=== PATIENT | male | born 1965 | race Caucasian/White ===

== ENCOUNTER 2017-08-27 10:50 | Emergency (ER) | payer OTHER, BC ==
[2017-08-27 12:19] VITALS: BP 142/93
--- NOTE | 2017-08-27 12:46 | UC ---
Respiratory Complaint HPI - HPI Summary HPI Summary: 2 weeks of worsening left lateral rib pain, positional and increase pain with movement, no fevers, - History of Current Complaint Chief Complaint: UCRespiratory Stated Complaint: LEFT SIDE RIB PAIN Time Seen by Provider: 08/27/17 12:39 Hx Obtained From: Patient Onset/Duration: Gradual Onset, Lasting Weeks - 2, Still Present Timing: Constant Severity Initially: Moderate Severity Currently: Moderate Character: Cough: Nonproductive Aggravating Factors: Recumbent Position Alleviating Factors: Nothing Associated Signs And Symptoms: Positive: Pleuritic Chest Pain Related History: Similar Episode/Dx as: - right side last year dx as pleurtic chest pain - Allergies/Home Medications Allergies/Adverse Reactions: Allergies Allergy/AdvReac Type Severity Reaction Status Date / Time Penicillins Allergy Unknown Unknown Verified 08/27/17 12:12 Reaction Details PMH/Surg Hx/FS Hx/Imm Hx Previously Healthy: No Cardiovascular History: Hypertension - Surgical History Surgical History: Yes Surgery Procedure, Year, and Place: Anal Fissure, 2006 2007, [facility] - Family History Known Family History: Positive: Hypertension - Social History Occupation: Employed Full-time Lives: With Family Alcohol Use: Other Alcohol Amount: 5-6 beer Substance Use Type: None Smoking Status (MU): Heavy Every Day Tobacco Smoker Type: Cigarettes Amount Used/How Often: 1 ppd Length of Time of Smoking/Using Tobacco: 30 years Have You Smoked in the Last Year: Yes When Did the Patient Quit Smoking/Using Tobacco: 12/2016 - Immunization History Most Recent Tetanus Shot: unknown Review of Systems Constitutional: Negative Skin: Negative Eyes: Negative ENT: Negative Respiratory: Cough Cardiovascular: Negative Gastrointestinal: Negative Genitourinary: Negative Motor: Negative Neurovascular: Negative Musculoskeletal: Negative Neurological: Negative Psychological: Negative Is Patient Immunocompromised?: No All Other Systems Reviewed And Are Negative: Yes Physical Exam Triage Information Reviewed: Yes Appearance: Well-Appearing, No Pain Distress, Well-Nourished Vital Signs: Initial Vital Signs Temp 98.4 F 08/27/17 12:13 Pulse 80 08/27/17 12:13 Resp 18 08/27/17 12:13 BP 142/93 08/27/17 12:13 Pulse Ox 98 08/27/17 12:13 Vital Signs Reviewed: Yes Eye Exam: Normal Eyes: Positive: Conjunctiva Clear ENT Exam: Normal ENT: Positive: Normal ENT inspection, Hearing grossly normal, Pharynx normal, TMs normal. Negative: Nasal congestion, Nasal drainage, Trismus, Muffled voice , Hoarse voice, Sinus tenderness Dental Exam: Normal Neck exam: Normal Neck: Positive: Supple, Nontender, No Lymphadenopathy Respiratory Exam: Normal Respiratory: Positive: Chest non-tender, Lungs clear, Normal breath sounds, No respiratory distress, No accessory muscle use Cardiovascular Exam: Normal Cardiovascular: Positive: RRR, No Murmur, Pulses Normal, Brisk Capillary Refill Musculoskeletal Exam: Normal Musculoskeletal: Positive: Strength Intact, ROM Intact, No Edema Neurological Exam: Normal Neurological: Positive: Alert, Muscle Tone Normal Psychological Exam: Normal Skin Exam: Normal UC Diagnostic Evaluation - Laboratory O2 Sat by Pulse Oximetry: 98 - Radiology Xray Interpretation: Positive (See Comments) - 2.6 cm nodule right lung Radiology Interpretation Completed By: Radiologist Respiratory Course/Dx - Course Course Of Treatment: explained to patient finding on x-ray, patient understands the importance of follow up as planned with Dr. Mehta 08/29/17 at 4pm-- - Differential Dx/Diagnosis Provider Diagnoses: Left chest wall pain, right pulmonary nodule Discharge - Discharge Plan Condition: Stable Disposition: HOME Patient Education Materials: Pulmonary Nodules (ED), Chest Wall Pain (ED) Referrals: Supa Vigil MD [Primary Care Provider] - 08/29/17 4:00 pm
--- NOTE | 2017-08-27 13:21 | RAD ---
INDICATION: Cough and left rib pain COMPARISON: Most recent comparison chest x-rays dated August 05, 2016 TECHNIQUE: PA and lateral views of the chest were obtained. FINDINGS: The heart and mediastinum are normal in size and contour. Overlying the lower right lung is a 2.6 cm density that was not seen on the previous chest x-ray. Otherwise the lungs are grossly clear. There is no evidence of large pleural effusion. Visualized bones are normal for the patient's age. There is no radiographic evidence of free air beneath the diaphragm IMPRESSION: INTERVAL APPEARANCE OF A 2.6 CM DENSITY OVERLYING THE LOWER RIGHT LUNG NOT LOCALIZED ON THE LATERAL VIEW CHEST X-RAY. IN THE SETTING OF A SMOKING HISTORY FURTHER CHARACTERIZATION WITH CONTRAST-ENHANCED CT OF THE CHEST IS ADVISED.
== END 2017-08-27 13:40 | disposition home or self-care (01) ==
LOC: UCCORT 10:50
DX: R07.89 Other chest pain (principal); R91.1 Solitary pulmonary nodule; I10 Essential (primary) hypertension; Z88.0 Allergy status to penicillin; Z87.891 Personal history of nicotine dependence
CPT/HCPCS: 71020; 99211; G0463

== ENCOUNTER 2018-03-22 21:01 | Emergency (ER) | payer OTHER, BC ==
[2018-03-22 22:12] LABS: ABS Basophils 0 10^3/ul (0-0.2); ABS Eosinophils 0.1 10^3/ul (0-0.6); ABS Lymphocytes 1.8 10^3/ul (1.0-4.8); ABS Monocytes 0.9 10^3/ul (0-0.8); ABS Nucleated RBC 0 10^3/ul; Eosinophil % 1.5 % (0-6); Hematocrit 43 % (42-52); Hemoglobin 14.8 g/dl (14.0-18.0); Lymphocyte % 30.8 % (25-47); Mean Corpuscular HGB Conc 35 g/dl (31-36); Mean Corpuscular Hemoglobin 31 pg (27-31); Mean Corpuscular Volume 90 fL (80-94); Mean Platelet Volume 6.8 um3 (7.4-10.4); Nucleated Red Blood Cells % 0.1; Platelet Count 290 10^3/ul (150-450); Red Blood Count 4.77 10^6/ul (4.00-5.40); Red Cell Distribution Width 13 % (10.5-15); White Blood Count 5.9 10^3/ul (3.5-10.8)
[2018-03-22 22:35] LABS: EGFR Non-African American 110.6 (>60)
[2018-03-22 23:55] VITALS: BP 132/74
--- NOTE | 2018-03-23 05:16 | ED ---
Emmanuel Vinson Jade, scribed for Jose Angel Muniz MD on 03/22/18 at 2339 . Syncope/Near Syncope - HPI Summary HPI Summary: Pt is a 52 y/o male who presents to the ED s/p syncope at 19:30. He states he was sitting down smoking a cigarette when he had a sudden heavy cough. Pt stood up, and remembers his knees buckling. He does not think he had a full LOC, but does not remember hitting his forehead and knee. Pt states he stood himself back up. He denies any headache. Pt is a heavy smoker and drinker, and uses marijuana. His tetanus is UTD. - History Of Current Complaint Chief Complaint: EDSyncope Time Seen by Provider: 03/22/18 23:34 Hx Obtained From: Patient Onset/Duration: Sudden Onset - 19:30, Resolved Context: Unwitnessed Activity At Onset: At Rest Aggravating Factor(s): Exertion - Coughing Alleviating Factor(s): Spontaneous Resolution - Allergies/Home Medications Allergies/Adverse Reactions: Allergies Allergy/AdvReac Type Severity Reaction Status Date / Time Penicillins Allergy Unknown Verified 03/22/18 21:07 Reaction Details PMH/Surg Hx/FS Hx/Imm Hx Endocrine/Hematology History: Denies: Hx Diabetes, Hx Thyroid Disease Cardiovascular History: Reports: Hx Hypertension, Hx Valvular Heart Disease - mitral valve prolapse. Comment Only: Hx Congestive Heart Failure - MVP Respiratory History: Reports: Hx Pneumonia Denies: Hx Asthma, Hx Chronic Obstructive Pulmonary Disease (COPD) GI History: Denies: Hx Ulcer History: Denies: Hx Dialysis, Hx Kidney Stones, Hx Renal Disease - Surgical History Surgery Procedure, Year, and Place: Anal Fissure, 2006 2007, [facility] Infectious Disease History: No Infectious Disease History: Denies: Hx Clostridium Difficile, Hx Hepatitis, Hx Human Immunodeficiency Virus (HIV), Hx of Known/Suspected MRSA, Hx Shingles, Hx Tuberculosis, Traveled Outside the [place] in Last 30 Days - Family History Known Family History: Positive: Hypertension - Social History Alcohol Use: Daily Substance Use Type: Reports: Marijuana Smoking Status (MU): Heavy Every Day Tobacco Smoker Type: Cigarettes Amount Used/How Often: 1 ppd Length of Time of Smoking/Using Tobacco: 30 years Have You Smoked in the Last Year: Yes Review of Systems Negative: Fever Positive: Syncope. Negative: Headache All Other Systems Reviewed And Are Negative: Yes Physical Exam - Summary Physical Exam Summary: Appearance: Well appearing, no pain distress Skin: warm, dry, reflects adequate perfusion. Abrasion on left forehead and right knee, not actively bleeding. Head/face: normal Eyes: EOMI, JARROD. A little bloodshot. ENT: normal. Normal TMs. Neck: supple, non-tender Respiratory: CTA, breath sounds present Cardiovascular: RRR, pulses symmetrical Abdomen: non-tender, soft Bowel Sounds: present Musculoskeletal: normal, strength/ROM intact Neuro: normal, sensory motor intact, A&Ox3 Triage Information Reviewed: Yes Vital Signs On Initial Exam: Initial Vitals Temp Pulse Resp BP Pulse Ox 97.4 F 72 20 138/85 98 03/22/18 21:03 03/22/18 21:03 03/22/18 21:03 03/22/18 21:03 03/22/18 21:03 Vital Signs Reviewed: Yes Diagnostics - Vital Signs Vital Signs Temp Pulse Resp BP Pulse Ox 03/22/18 21:03 97.4 F 72 20 138/85 98 - Laboratory Lab Results: Lab Results 03/22/18 03/22/18 03/22/18 Range/Units 22:02 22:02 22:02 WBC 5.9 (3.5-10.8) 10^3/ul RBC 4.77 (4.00-5.40) 10^6/ul Hgb 14.8 (14.0-18.0) g/dl Hct 43 (42-52) % MCV 90 (80-94) fL MCH 31 (27-31) pg MCHC 35 (31-36) g/dl RDW 13 (10.5-15) % Plt Count 290 (150-450) 10^3/ul MPV 6.8 L (7.4-10.4) um3 Neut % (Auto) 51.7 (38-83) % Lymph % (Auto) 30.8 (25-47) % Evangeline % (Auto) 15.2 H (0-7) % Eos % (Auto) 1.5 (0-6) % Baso % (Auto) 0.8 (0-2) % Absolute Neuts (auto) 3.0 (1.5-7.7) 10^3/ul Absolute Lymphs (auto) 1.8 (1.0-4.8) 10^3/ul Absolute Monos (auto) 0.9 H (0-0.8) 10^3/ul Absolute Eos (auto) 0.1 (0-0.6) 10^3/ul Absolute Basos (auto) 0 (0-0.2) 10^3/ul Absolute Nucleated RBC 0 10^3/ul Nucleated RBC % 0.1 Sodium 129 L (135-145) mmol/L Potassium 3.5 (3.5-5.0) mmol/L Chloride 95 L (101-111) mmol/L Carbon Dioxide 26 (22-32) mmol/L Anion Gap 8 (2-11) mmol/L BUN 9 (6-24) mg/dL Creatinine 0.74 (0.67-1.17) mg/dL Est GFR ( Amer) 133.9 (>60) Est GFR (Non-Af Amer) 110.6 (>60) BUN/Creatinine Ratio 12.2 (8-20) Glucose 82 (70-100) mg/dL Lactic Acid 0.7 (0.5-2.0) mmol/L Calcium 9.0 (8.6-10.3) mg/dL Magnesium 2.2 (1.9-2.7) mg/dL Total Bilirubin 0.30 (0.2-1.0) mg/dL AST 17 (13-39) U/L ALT 14 (7-52) U/L Alkaline Phosphatase 48 (34-104) U/L Troponin I 0.00 (<0.04) ng/mL Total Protein 7.2 (6.4-8.9) g/dL Albumin 4.2 (3.2-5.2) g/dL Globulin 3.0 (2-4) g/dL Albumin/Globulin Ratio 1.4 (1-3) TSH 1.76 (0.34-5.60) mcIU/mL Result Diagrams: 03/22/18 22:02 03/22/18 22:02 Lab Statement: Any lab studies that have been ordered have been reviewed, and results considered in the medical decision making process. - EKG 21:32 Cardiac Rate: NL - 66 bpm EKG Rhythm: Sinus Rhythm ST Segment: Normal EKG Interpretation: Normal axis, RBBB Course/Dx Course Of Treatment: Heavy smoker, drinker with coughing fit that caused lightheadedness and subsequent syncope. Abrasion to his knee and forehead. No headaches, etc. Neurologically normal at present. Tetanus is up-to-date. Likely etiology after normal EKG his cough syncope. Discussed smoking as likely precipitant. He will try to cut back. He will follow up with primary care physician. - Diagnoses Differential Diagnosis/HQI/PQRI: Positive: Hypoglycemia, Hypovolemia, Metabolic Reaction, Vasovagal Episode Provider Diagnoses: Cough syncope, Abrasions of multiple sites, Tobacco abuse Discharge - Sign-Out/Discharge Documenting (check all that apply): Discharge/Admit/Transfer - Discharge - Discharge Plan Condition: Improved Disposition: HOME Patient Education Materials: How to Stop Smoking (ED), Syncope (ED) Referrals: Supa Vigil MD [Primary Care Provider] - Additional Instructions: Dress your abrasions with bacitracin ointment twice a day. Cut back or quit smoking. This contributes directly to your cough and subsequent passing out. Call to follow-up with family doctor morning. Return if worse, new symptoms or other concerns. - Billing Disposition and Condition Condition: IMPROVED Disposition: Home The documentation as recorded by the Emmanuel peoples Jade accurately reflects the service I personally performed and the decisions made by , Jose Angel Muniz MD.
== END 2018-03-22 23:55 | disposition home or self-care (01) ==
LOC: ED 21:01
DX: R55 Syncope and collapse (principal); S80.219A Abrasion, unspecified knee, initial encounter; F19.10 Other psychoactive substance abuse, uncomplicated; F17.210 Nicotine dependence, cigarettes, uncomplicated; W19.XXXA Unspecified fall, initial encounter; Y92.9 Unspecified place or not applicable; R05 Cough
CPT/HCPCS: 36415; 80053; 83605; 83735; 84443; 84484; 85025; 93005; 99282

== ENCOUNTER 2018-11-13 09:00 | Inpatient (IN) | payer OTHER, BC ==
[~2018-11-13 09:00] MED LIST: Sodium Bicarbonate 8.4%* 50 ML SYRINGE ONE
[2018-11-13] MEDS ORDERED: EPINEPHrine SYR 0.1MG/ML* SYRINGE ONE (09:01)
--- NOTE | 2018-11-13 09:04 | ED ---
Cardiac Resuscitation - HPI Summary HPI Summary: Pt is a 53 y/o male brought in by EMS who presents to the ED c/o cardiac arrest. He was sent over from the , where he presented with sudden onset sore throat, inability to swallow, difficulty with secretions, and difficulty breathing since 2:30 this morning. Upon EMS arrival to the , pt was in severe respiratory distress, and was non-verbal and purple in color. Pt was placed in the ambulance when he went into respiratory arrest. Dr. Arndt attempted to tube him but was unsuccessful due to the edema, and the pt was moved back into the . Pt was given IV Decadron and racemic epinephrine nebulizer at the . Dr. David arrived and performed a cricothyrotomy. Pt then went into cardiac arrest, and CPR was started at 8:05. He was given 6 doses of epinephrine by EMS and was transported in PEA. EMS was unable to find a pulse upon arrival to the ED at 8:56. Several rounds of ACLS in the ED was able to produce an organized rhythm. ABC alert called at 8:50, ETA 5 minutes. A second ABC alert was called at 9:28. Pts family arrived to the ED at 9:15. He is a heavy smoker and drinks alcohol daily. PMHx HTN. Pt is a level 5 caveat due to his lack of consciousness. - History of Current Complaint Stated Complaint: ABC Hx Obtained From: EMS, Medical Records Hx From Patient Unobtainable Due To: Other - cardiac arrest Arrest Witnessed: Yes - Allergies/Home Medications Allergies/Adverse Reactions: Allergies Allergy/AdvReac Type Severity Reaction Status Date / Time Penicillins Allergy Unknown Verified 11/13/18 07:11 Reaction Details - Past Medical History Past Medical History: Other: - HTN - Family History Family History: Other: - HTN - Social History Social History: Lives with Family, Drug Use - marijuana, ETOH Use - Daily, Tobacco Use - heavy - Review of Systems Review of Systems: Unobtainable Due to Extremis - Limited due to level 5 caveat - cardiac arrest, dysphagia, respiratory distress Physical Examination - Summary Physical Exam Summary: Appearance: ill appearing, severe pain distress Skin: warm, dry, reflects adequate perfusion Head/face: normal Eyes: pupils and fixed and dilated, no pupillary reaction ENT: mucous membranes moist, blood from nares Neck: supple, non-tender, cricothyrotomy with endotracheal tube, bleeding from surgical wound Respiratory: CTA, bilateral breath sounds present Cardiovascular: CPR assisted cardiac activity, no pulses Abdomen: non-tender, soft, gaseous distention Bowel Sounds: present Musculoskeletal: normal, strength/ROM intact Neuro: no spontaneous movements GCS: 3 - Physical Examination Triage Information Reviewed: Yes Completion Of Physical Exam Limited Due To: Other - lack of consciousness Resuscitation: Successful Diagnostics - Laboratory Lab Statement: Any lab studies that have been ordered have been reviewed, and results considered in the medical decision making process. - Radiology Soft Tissue Neck XR Radiology Interpretation Completed By: Radiologist Summary of Radiographic Findings: Nasogastric tube in place. The distal tip is not included in the [id number]. A catheter enters through a tracheostomy and extends distal with the tip of thecatheter not definitively visualized within the [id number]. Soft tissue swelling at the hypopharynx with obscuration of the normal prevertebral soft tissue contour air column contours. Consider soft tissue edema/inflammation as well as presence of hematoma or. tumor. Correlate with clinical assessment and consider CT with contrast for further evaluation. No cervical spine fracture or malalignment evident from the craniocervical junction through the C6 level within limits of crosstable lateral portable radiograph. The cervical thoracic junction is obscured due to superimposed soft tissues. ED physician reviewed radiology report. CXR Radiology Interpretation Completed By: Radiologist Summary of Radiographic Findings: Tip of the tracheostomy tube is 2.8 cm above the Adelita. The nasogastric tube extends to the gastric fundus. Mild linear opacities at the lower lung zones are most suspicious for subsegmental. atelectasis. Grossly clear pleural spaces. Negative for pneumothorax. The heart , pulmonary vasculature, and mediastinal contours are unremarkable. Negative for free air beneath the diaphragm. ED physician reviewed radiology report. Cardiac Resus. Course/Dx - Course Course Of Treatment: Nurse's notes reviewed. Patient presents in PEA arrest for more than 45 minutes during transport. His CPR was maintained by the life band devise. He had had prehospital cricothyrotomy by ENT surgeon. He received a rounds of epinephrine prehospital. He was also given dexamethasone and racemic epinephrine by the urgent care physician prior to the arrest. Here , several rounds of ACLS were given in addition 3 bicarbonates were given and the patient regained spontaneous circulation. This was confirmed with bedside ultrasound and presence of spontaneous pulses. He was then placed on norepinephrine drip. The risk adjustment specialist was in the room and assisted by placing a triple lumen central catheter in the right femoral vein. Chest x-ray indicated appropriate placement of the cricothyroidotomy tube. A nasogastric tube was placed which relieved abdominal distention. Soft tissue x-ray of the neck shows diffuse edema. There is no return of neurologic value. The patient did have another brief episode of loss pulses which were supported with CPR and another round of ACLS. His initial pH came back less than 6.9. Dr. Schulz from the ICU came and assisted with resuscitation. He will take the patient emergently to the ICU. There is concern for anoxic injury and possible brain . The was informed that the patient will be going to the ICU and of the concerning prognosis. - Cardiac Resuscitation Differential Dx/HPI/PQRI: Cardiac Rhythm Disturbance, Other: - angioedema, infectious epiglottitis, post pharyngeal abscess - Diagnoses Provider Diagnoses: Cardiopulmonary arrest, Angioedema, Acute airway obstruction, Anoxic brain damage During the Visit The Following Alert/Code Occurred: ABC Alert - Called at 8:50, ETA 5 minutes. Another ABC alert called at 9:28. - Provider Notifications Discussed Care Of Patient With: Navin Fan Time Discussed With Above Provider: 08:35 Instructed by Provider To: Other - Dr. Fan arrived to the ED. At 9:04 Dr. Lanier arrived to the room, and put in a triple lumen catheter. At 9:12 Dr. Schulz arrived to the room, and he accepts pt for admission to the ICU room 12. He placed pt of Levophed. - Critical Care Time Critical Care Time: 30-74 min - CCT is EXCLUSIVE of separately billable procedures. Discharge - Sign-Out/Discharge Documenting (check all that apply): Patient Departure - admit Patient Received Moderate/Deep Sedation with Procedure: No - Discharge Plan Condition: Critical Disposition: ADMITTED TO [facility] - Billing Disposition and Condition Condition: CRITICAL Disposition: Admitted to [facility] - Attestation Statements Document Initiated by Scribe: Yes Documenting Scribe: Colleen Benitez Provider For Whom Scribe is Documenting (Include Credential): Jose Angel Muniz MD Scribe Attestation: Colleen Vinson, scribed for Jose Angel Muniz MD on 11/13/18 at 1138. Scribe Documentation Reviewed: Yes Provider Attestation: The documentation as recorded by the scribe, Colleen Benitez accurately reflects the service I personally performed and the decisions made by me, Jose Angel Muniz MD Status of Nella Document: Viewed
[2018-11-13] MEDS ORDERED: Tranexamic Acid 1,000 MG/10 ML SDV ONE ×2 (09:08→09:43)
[2018-11-13] MEDS ORDERED: Norepinephrine 16MCG/ML IVPRE* 4,000 MCG/250 ML BAG IV ONE (09:38)
[2018-11-13] MEDS: Norepinephrine 16MCG/ML IVPRE* 4,000 MCG/250 ML BAG IV SCH ×2 (11:30→23:17)
[2018-11-13] MEDS: Lactated Ringers 1000 ML Bag* 1,000 ML IV SCH ×2 (11:33→19:30)
[2018-11-13] MEDS: cefTRIAXone(*) 1 GM in NS 0.9% 50 ML* 50 ML IVPB SCH (11:33)
[2018-11-13 11:42] LABS: Hematocrit 47 % (42-52); Hemoglobin 15.7 g/dl (14.0-18.0); Mean Corpuscular HGB Conc 33 g/dl (31-36); Mean Corpuscular Hemoglobin 31 pg (27-31); Mean Corpuscular Volume 93 fL (80-94); Mean Platelet Volume 7.6 fL (7.4-10.4); Platelet Count 306 10^3/ul (150-450); Red Blood Count 5.12 10^6/ul (4.00-5.40); Red Cell Distribution Width 14 % (10.5-15); White Blood Count 11.2 10^3/ul (3.5-10.8)
[2018-11-13] MEDS: Heparin VIAL(*) 5000 UNITS/ML VIAL (FIVE THOUSAND) SUBCUT SCH ×2 (11:43→21:45)
[2018-11-13 11:58] LABS: Albumin 3.6 g/dL (3.2-5.2); Albumin/Globulin Ratio 1.4 (1-3); BUN/Creatinine Ratio 13.8 (8-20); Calcium 8.7 mg/dL (8.6-10.3); EGFR African American 74.2 (>60); EGFR Non-African American 61.3 (>60); Globulin 2.5 g/dL (2-4); Potassium 4.2 mmol/L (3.5-5.0); Total Bilirubin 0.6 mg/dL (0.2-1.0); Total Protein 6.1 g/dL (6.4-8.9)
--- NOTE | 2018-11-13 12:26 | PRO ---
CENTRAL LINE TRIPLE LUMEN CATHETER IMPLANTATION REPORT: DATE OF PROCEDURE: 11/13/18 - ROOM #ICU-04 PROCEDURE: Central line triple lumen catheter implantation. INDICATION: Hypotension, respiratory arrest. Patient is a 53-year-old gentleman who had a respiratory arrest at [facility]. He was transferred over to the emergency room. I was called down for code situation. Patient was getting active chest compressions. He had no pressure. Triple lumen catheter was recommended. DESCRIPTION OF PROCEDURE: Patient's right femoral area was prepped and draped in usual fashion. The femoral vein was entered via Seldinger technique and a guidewire was placed. Over the guidewire, a triple lumen catheter was inserted and sutured into position. All ports were flushed and noted to be functioning normally. It was sutured into position. Patient tolerated the procedure well with no complications. [id number]/[facility] #: [id number] YOLANDA
[2018-11-13] MEDS ORDERED: Insulin REGULAR(*) 1 UNITS UNIT IV PUSH ONE (12:52)
[2018-11-13] MEDS ORDERED: Vancomycin per Pharmacy* NOTE FOLLOW UP SCH (13:00)
[2018-11-13] MEDS ORDERED: Vancomycin(*) 1,250 MG in NS 0.9% 250 ML* 250 ML IVPB ONE (13:15)
[2018-11-13] MEDS ORDERED: NS 0.9% 250 ML* 250 ML ONE (13:31)
[2018-11-13] MEDS: Chlorhexidine MOUTHWASH 0.12%* 15 ML UDC TOPICAL SCH ×3 (13:32→21:45)
--- NOTE | 2018-11-13 14:49 | HP ---
ADMISSION HISTORY AND PHYSICAL: DATE OF ADMISSION: 11/13/18 REASON FOR ADMISSION: Acute upper airway obstruction with cardiopulmonary arrest. HISTORY OF PRESENT ILLNESS: This patient is a 53-year-old white male with a history of hypertension, who was in usual state of health until early this AM, when he complained of a sore throat (at about 3:00 AM), which increased in severity - patient then went to urgent care for evaluation and, while there, he suffered respiratory arrest - attempts at translaryngeal intubation were unsuccessful due to marked edema of the larynx and supralaryngeal area - emergency tracheotomy was required, and was performed by Dr. David of the ENT service. The patient subsequently developed pulseless electrical activity and was brought to the emergency department here (where he presented with PEA) - in the ED, the patient was resuscitated for about one hour with a total of 5 amps of epinephrine and 4 amps of bicarb - after one hour, patient had sustained spontaneous pulses and an aqequate BP on Levophed at 40 mcg per minute. Total ischemic time is approximately 2 hours. OUTPATIENT MEDICATIONS: 1. Lisinopril 20 mg daily. 2. Diltiazem 300 mg daily. ALLERGIES: Reported allergy to the PENICILLINS - reaction not known at this time. 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 There is a prior history of smoking and the patient is currently attempting to quit with nicotine patches. There is no history of alcohol or illicit drug abuse. REVIEW OF SYSTEMS: Unobtainable. PHYSICAL EXAMINATION GENERAL: The patient was unresponsive to deep pain with no sedation. VITAL SIGNS: Temp was 35 degrees, heart rate 120 and regular, respiratory rate 24 on ventilator, O2 sat 94% on 60% FiO2, blood pressure 115/78 on Levophed drip , end- tidal CO2 was 34. HEENT: Pupils were dilated, fixed and unresponsive to light. There were no corneal reflexes bilaterally. There was no facial asymmetry. A #6 tracheostomy tube was in place. LUNGS: Clear to auscultation. CARDIAC EXAM: There were no murmurs, rubs, or gallops. ABDOMEN: Soft, not distended. EXTREMITIES: Not edematous and not cyanotic. The patient had pulses in both feet and both groins. DIAGNOSTIC STUDIES/LAB DATA: White count was 11.2, hemoglobin 15.7, platelets 306,000. Electrolytes: Sodium was 131, bicarb was 22, potassium 4.2, BUN 17, creatinine 1.2, glucose is 256, lactate 3.6. AST 451, ALT 180, total protein 6.1, albumin 3.6. Blood gas in the emergency room showed a pCO2 of 76, pH of 6.9, pO2 of 305 and 100% saturated. Chest x-ray shows tip of the tracheostomy tube above the main rosie, and there is no cardiomegaly or pulmonary infiltrates. Soft tissue film of the neck showed soft tissue swelling in the hypopharynx with obscuration of the normal prevertebral soft tissue contour. IMPRESSION: Probable acute epiglottitis with complete upper airway obstruction and subsequent cardiopulmonary arrest. Patient has not regained consciousness, and neurologic exam now shows no evidence of brainstem function. MANAGEMENT: 1. General supportive care with mechanical ventilation and vasopressors as needed, and monitor lactate levels, renal function, and urine output. 2. Treat the presumed epiglottitis with ceftriaxone and vancomycin. 3. Start targeted temperature management, with target of 36 degrees, maintained for 24 hours. 3. If neurologic exam does not improve after 24 hours, will perform a brain determination. Patient's and parents present at the bedside, and are aware of the present condition and the management plan. CRITICAL CARE TIME: 75 minutes. [id number]/[facility] #: [id number] YOLANDA
[2018-11-13] MEDS: Insulin LISPRO* 1 UNITS UNIT SUBCUT SCH ×3 (16:16→21:45)
[2018-11-13 19:01] LABS: Hematocrit 46 % (42-52); Hemoglobin 15.2 g/dl (14.0-18.0); Mean Corpuscular HGB Conc 33 g/dl (31-36); Mean Corpuscular Hemoglobin 31 pg (27-31); Mean Corpuscular Volume 93 fL (80-94); Mean Platelet Volume 7.2 fL (7.4-10.4); Platelet Count 237 10^3/ul (150-450); Red Blood Count 4.93 10^6/ul (4.00-5.40); Red Cell Distribution Width 13 % (10.5-15); White Blood Count 16.4 10^3/ul (3.5-10.8)
[2018-11-13] MEDS ORDERED: Famotidine IV * 20 MG in NS 0.9% 100 ML* 100 ML IVPB SCH (21:00)
[2018-11-13] MEDS: Famotidine IV* 10 MG/ML 2 ML (20 mg) IV SLOW PU SCH (21:45)
[2018-11-13] MEDS: Vancomycin(*) 1,000 MG in NS 0.9% 250 ML* 250 ML IVPB SCH (21:46)
[2018-11-14] MEDS: Chlorhexidine MOUTHWASH 0.12%* 15 ML UDC TOPICAL SCH ×6 (01:32→21:33)
[2018-11-14] MEDS: Insulin LISPRO* 1 UNITS UNIT SUBCUT SCH ×4 (01:32→14:59)
[2018-11-14] MEDS: Lactated Ringers 1000 ML Bag* 1,000 ML IV SCH ×2 (03:01→11:07)
[2018-11-14] MEDS: Norepinephrine 16MCG/ML IVPRE* 4,000 MCG/250 ML BAG IV SCH ×3 (03:20→10:47)
[2018-11-14 05:45] LABS: Hematocrit 46 % (42-52); Hemoglobin 15.1 g/dl (14.0-18.0); Mean Corpuscular HGB Conc 33 g/dl (31-36); Mean Corpuscular Hemoglobin 31 pg (27-31); Mean Corpuscular Volume 92 fL (80-94); Mean Platelet Volume 7.3 fL (7.4-10.4); Platelet Count 232 10^3/ul (150-450); Red Blood Count 4.94 10^6/ul (4.00-5.40); Red Cell Distribution Width 14 % (10.5-15); White Blood Count 18.8 10^3/ul (3.5-10.8)
[2018-11-14 05:56] LABS: Albumin 3.6 g/dL (3.2-5.2); Albumin/Globulin Ratio 1.4 (1-3); BUN/Creatinine Ratio 18.9 (8-20); Calcium 8.7 mg/dL (8.6-10.3); EGFR African American 59.9 (>60); EGFR Non-African American 49.5 (>60); Globulin 2.5 g/dL (2-4); Potassium 4.6 mmol/L (3.5-5.0); Total Bilirubin 0.4 mg/dL (0.2-1.0); Total Protein 6.1 g/dL (6.4-8.9)
[2018-11-14 06:02] LABS: Activated Partial Thrombo Time 32.5 seconds (26.0-36.3)
[2018-11-14] MEDS: Vancomycin(*) 1,000 MG in NS 0.9% 250 ML* 250 ML IVPB SCH ×3 (06:22→21:34)
[2018-11-14] MEDS: Famotidine IV* 10 MG/ML 2 ML (20 mg) IV SLOW PU SCH ×2 (08:19→21:33)
[2018-11-14] MEDS: Heparin VIAL(*) 5000 UNITS/ML VIAL (FIVE THOUSAND) SUBCUT SCH ×2 (08:19→21:34)
[2018-11-14] MEDS ORDERED: DESMOPRESSIN 0.01% ALT NARE SCH (11:00)
[2018-11-14] MEDS: cefTRIAXone(*) 1 GM in NS 0.9% 50 ML* 50 ML IVPB SCH (11:20)
[2018-11-14] MEDS ORDERED: Lactated Ringers 1000 ML Bag* 1,000 ML IV SCH (11:32)
[2018-11-14] MEDS: Desmopressin Acetate* 4 MCG/ML 1 ML SDV IV SCH ×2 (11:35→21:34)
--- NOTE | 2018-11-14 11:55 | PN ---
Progress Note - Progress Note Date of Service: 11/14/18 Note: BRAIN DETERMINATION Patient remains comatose after 24 hours of targeted temperature management (to 36 degrees). Because of the continuing coma and the lack of observable spontaneous breathing efforts, the following brain determination was performed: At the time of the evaluation, the patient's body temp was 36.4 degrees, and the BP was 110/80. (Also, serum free T4 is normal.) Mental status: unresponsive to verbal commands and deep pain Pupilllary light reflex: absent Corneal reflexes: absent Gag reflex: absent Oculocephalic reflex: absent (eyes move with head rotation) Oculovestibular reflex: absent (eyes do not deviate during cold saline infusion - both ears) Apnea test: With baseline PCO2 at 52 mm Hg, the patient was removed from ventilator for 15 minutes without evidence of spontaneous breathing efforts. The PCO2 at the end of the 15- minute apnea test was 93 mm Hg, representing an increase in PCO2 of 41 mm Hg without evidence of spontaneous breathing efforts. The above evaluation is consistent with the diagnosis or brain . A confirmatory evaluation is pending.
[2018-11-14] MEDS ORDERED: Vancomycin Trough Check NOTE FOLLOW UP ONE (13:00)
--- NOTE | 2018-11-14 14:21 | CONS ---
NEUROLOGY CONSULTATION: DATE OF CONSULT: 11/14/18 LOCATION: He is an inpatient in ICU, bed 4. REFERRING PHYSICIAN: Dr. Schulz. CHIEF COMPLAINT: Cardiopulmonary arrest, assess for brain function. HISTORY OF PRESENT ILLNESS: Adrien Lazo is a 53-year-old man in generally good health who presented to the urgent care center yesterday morning with difficulty breathing. In reviewing the urgent care notes, he noted difficulty breathing, which started in the manager cafe hours of yesterday morning. It was accompanied by throat pain according to the note from the urgent care center. He was having problems swallowing as well. Upon evaluation , his initial vital signs were temperature 99.3, pulse 95, blood pressure 185/88 , and respiratory rate was 32 with a pulse oxygenation of 99%. He was noted on exam to have a swollen uvula. On reevaluation, he was declining and was having greater respiratory distress. A diagnosis of epiglottitis was raised by Dr. Arndt at the urgent care center. He contacted Anesthesiology and Dr. Rivera came, but was unable to intubate the patient. Dr. David of [facility] arrived and performed a tracheostomy. Cardiopulmonary resuscitation was initiated at the urgent care center. He was transferred urgently to the emergency room. In the emergency room, it was noted that CPR had started at 8: 05. He was pulseless upon arrival and several rounds of ACLS were delivered. Two ABC alerts were called over the intervening time. Ultimately, a pulse was obtained. He was admitted to intensive care unit. PAST MEDICAL HISTORY: Notable for hypertension. He was a smoker up until the week prior to his sudden illness. MEDICATIONS: As an outpatient include: 1. Diltiazem. 2. Lisinopril. ALLERGIES: According to computer records, he is allergic to PENICILLIN. FAMILY HISTORY: Noncontributory. 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 He had just been attempting to quit smoking. There is no history of alcohol abuse. PHYSICAL EXAM: He is intubated in the intensive care unit bed. Last temperature is 36.4 degrees, blood pressure is running about 110/70, heart rate is in the 90s and seems regular. Neurological exam specifically for purposes of brain determination: Pupils are about 7 mm and do not react to light. There are no corneal reflexes. There are no spontaneous movements of the limbs and no spontaneous eye movements. There is no response to oculocephalic testing. There is no response to oculovestibular testing with 50 cc of ice cold water infused into each ear by a minute or two. External auditory canals were clear. There is no gagging with suctioning according to his nurse. There are no spontaneous movements. There is no response to deep nail bed pressure on all 4 limbs and no facial grimacing. DIAGNOSTIC STUDIES/LAB DATA: Apnea testing was performed earlier this morning by Dr. Schulz. Initial pCO2 was 52 and went up to 93 over a 15-minute apnea test. His oxygen level did not significantly drop and there were no respiratory movements. He has not received any sedating medications. His most recent electrolytes this morning were sodium 141, carbon dioxide 23, BUN 28, creatinine 1.48, glucose 184, liver enzymes are modestly elevated at AST 194 and ALT 169. Calcium normal at 8.7. He had a normal free T4 earlier this morning at 0.71. CBC this morning notable for elevated white blood cell count at 18.8, but otherwise a normal CBC. Medications are reviewed and he has not received any sedating medications. He is on ceftriaxone 1 g q.24 hours IV, DDAVP started this morning 2 mcg IV b.i.d. , famotidine 20 mg IV b.i.d., heparin 5000 units subcutaneous q.12 hours, sliding scale insulin, Levophed infusion, vancomycin dose adjusted by pharmacy, and again no neuromuscular blockers or sedating medications have been received. IMPRESSION AND PLAN: Impression is that of brain following prolonged cardiopulmonary arrest. He fits criteria for brain and has no confounding factors. Etiology of his brain insult is clearly identified as hypoxic-ischemic insult. I discussed my impression with Dr. Schulz. We then both spoke with the family including Adrien's , sister, and parents. I explained that Adrien fits criteria for brain , which is a state in which there is no evidence of any brain function. I told them that this is an irreversible state and that no one has ever recovered from verified brain . I explained that this is also medicolegally accepted as and that Adrien is determined to be as of this determination. They were given an opportunity to ask questions, but were obviously very distraught and so I will make myself available if they have questions going forward. We plan to have the transplant service discuss their service with them after they have time to digest. [id number]/CPS #: [id number] YOLANDA
--- NOTE | 2018-11-14 21:00 | DS ---
SUMMARY: DATE OF ADMISSION: 11/13/2018 DATE OF : 11/14/2018 HOSPITAL COURSE: This patient was a 53-year-old white male, who suffered a cardiopulmonary arrest on 11/13/18 secondary to upper airway obstruction from a presumed epiglottitis (requiring emergency tracheotomy) and was admitted to the ICU on a levophed drip after 1 hour of CPR in the emergency department for pulseless electrical activity. The patient did not regain consciousness after return of spontaneous circulation, and was subsequently treated with targeted temperature management (target temp of 36 degrees Celsius), which was maintained for 24 hours. (It is worth noting that the patient's inherent body temp was often lower than the target temp). Following the TTM, the patient remained comatose and also showed no other signs of brainstem activity, so a formal brain determination was conducted - the patient fulfilled all the criteria for a brain (see note concerning the brain determination). The brain determination was confirmed by a staff neurologist (Dr. Blair Nettles), and the assigned time of brain is 1:00 PM on 11/14/2018. The family (, brother, sisters, parents, and one daughter) were present at that time and were informed of the brain by Dr. Nettles. The family subsequently decided to have the patient evaluated for organ donation, which will be undertaken by [facility]. The insurance examiner was contacted and will perform an autopsy. FINAL DIAGNOSES: 1. Brain . 2. Probable epiglotittis with complete upper airway obstruction. 3. Cardiopulmonary arrest with anoxic encephalopathy. DISPOSITION: The patient currently being evaluated for organ donation and will have an autopsy performed by the medical reimbursement specialist. [id number]/CPS #: [id number] MTDD
[2018-11-14 22:21] LABS: Urine Appearance Cloudy; Urine Bacteria Absent (Absent); Urine Bilirubin Negative (Negative); Urine Blood 3+ (Negative); Urine Color Yellow; Urine Glucose 1+(50 mg/dL) (Negative); Urine Ketones Negative (Negative); Urine Nitrite Negative (Negative); Urine Protein 2+(100 mg/dL) (Negative); Urine Red Blood Cell 1+(3-5/hpf) (Absent); Urine Red Blood Cell Casts Present (Absent); Urine Specific Gravity 1.019 (1.010-1.030); Urine Urobilinogen Negative (Negative); Urine White Blood Cell Trace(0-5/hpf) (Absent)
[2018-11-14] MEDS ORDERED: Dextrose 50% Syringe 50 ML* 25 GM/50 ML SYRINGE IV PUSH ONE (22:30)
[2018-11-14] MEDS ORDERED: methylPREDNISolone 125 MG* 2 ML VIAL IV ONE (22:30)
[2018-11-14] MEDS ORDERED: Insulin REGULAR(*) 1 UNITS UNIT IV PUSH ONE (22:30)
[2018-11-14] MEDS ORDERED: LEVOTHYROXINE IV ONE (22:45)
[2018-11-14] MEDS ORDERED: D5W IV ONE (22:45)
[2018-11-14] MEDS ORDERED: Levothyroxine INJ* 200 MCG in D5W 500 ML BAG* 500 ML IV SCH (23:00)
[2018-11-14] MEDS: Levothyroxine INJ* 100 MCG in D5W 250 ML BAG* 250 ML IV SCH (23:05)
[2018-11-15 00:15] LABS: ABS Basophils 0 10^3/ul (0-0.2); ABS Eosinophils 0 10^3/ul (0-0.6); ABS Lymphocytes 0.7 10^3/ul (1.0-4.8); ABS Monocytes 1.3 10^3/ul (0-0.8); ABS Neutrophils 13.4 10^3/ul (1.5-7.7); ABS Nucleated RBC 0 10^3/ul; Eosinophil % 0 %; Hematocrit 41 % (42-52); Hemoglobin 13.5 g/dl (14.0-18.0); Lymphocyte % 4.4 %; Mean Corpuscular HGB Conc 33 g/dl (31-36); Mean Corpuscular Hemoglobin 31 pg (27-31); Mean Corpuscular Volume 94 fL (80-94); Mean Platelet Volume 7.8 fL (7.4-10.4); Nucleated Red Blood Cells % 0.1; Platelet Count 188 10^3/ul (150-450); Red Blood Count 4.42 10^6/ul (4.00-5.40); Red Cell Distribution Width 14 % (10.5-15); White Blood Count 15.3 10^3/ul (3.5-10.8)
[2018-11-15 00:24] LABS: Activated Partial Thrombo Time 33.9 seconds (26.0-36.3); INR 0.93 (0.77-1.02)
[2018-11-15 00:33] LABS: Albumin 3.3 g/dL (3.2-5.2); Albumin/Globulin Ratio 1.4 (1-3); BUN/Creatinine Ratio 17.6 (8-20); Calcium 8.3 mg/dL (8.6-10.3); EGFR African American 55.2 (>60); EGFR Non-African American 45.6 (>60); Globulin 2.4 g/dL (2-4); Indirect Bilirubin 0.2 mg/dL (0.3-1.0); Magnesium 2.5 mg/dL (1.9-2.7); Phosphorus 4.5 mg/dL (2.5-5.0); Potassium 4.4 mmol/L (3.5-5.0); Total Bilirubin 0.3 mg/dL (0.2-1.0); Total Protein 5.7 g/dL (6.4-8.9)
[2018-11-15 00:36] LABS: Troponin I 5.37 ng/mL (<0.04)
[2018-11-15 00:37] LABS: CKMB ng/mL 67.4 ng/mL (0.6-6.3)
[2018-11-15] MEDS: Chlorhexidine MOUTHWASH 0.12%* 15 ML UDC TOPICAL SCH ×6 (02:23→21:02)
[2018-11-15] MEDS: Levothyroxine INJ* 100 MCG in D5W 250 ML BAG* 250 ML IV SCH ×6 (04:25→23:31)
[2018-11-15] MEDS: Vancomycin(*) 1,000 MG in NS 0.9% 250 ML* 250 ML IVPB SCH ×3 (05:37→21:02)
[2018-11-15 06:36] LABS: ALT 126 U/L (7-52); AST 109 U/L (13-39); Albumin 3.2 g/dL (3.2-5.2); Albumin/Globulin Ratio 1.3 (1-3); Alkaline Phosphatase 53 U/L (34-104); Amylase 38 U/L (29-103); BUN/Creatinine Ratio 16.1 (8-20); Blood Urea Nitrogen 26 mg/dL (6-24); C Reactive Protein 110.64 mg/L (<8.01); CO2 Carbon Dioxide 25 mmol/L (22-32); Calcium 8.7 mg/dL (8.6-10.3); EGFR African American 54.4 (>60); EGFR Non-African American 44.9 (>60); Globulin 2.4 g/dL (2-4); Glucose 188 mg/dL (70-100); Magnesium 2.4 mg/dL (1.9-2.7); Phosphorus 3.7 mg/dL (2.5-5.0); Potassium 4.9 mmol/L (3.5-5.0); Sodium 145 mmol/L (135-145); Total Protein 5.6 g/dL (6.4-8.9)
[2018-11-15 06:37] LABS: Anion Gap 3 mmol/L (2-11); Chloride 117 mmol/L (101-111)
[2018-11-15] MEDS: Famotidine IV* 10 MG/ML 2 ML (20 mg) IV SLOW PU SCH ×2 (08:58→21:02)
[2018-11-15] MEDS: Heparin VIAL(*) 5000 UNITS/ML VIAL (FIVE THOUSAND) SUBCUT SCH ×2 (08:58→21:02)
[2018-11-15] MEDS: Desmopressin Acetate* 4 MCG/ML 1 ML SDV IV SCH ×2 (08:58→21:02)
[2018-11-15] MEDS: Albuterol 2.5 MG/3 ML NEB.SOL* (0.083%) INH SCH ×5 (08:59→21:27)
[2018-11-15] MEDS ORDERED: Desmopressin Acetate* 2 MCG in NS 0.9% 50 ML* 50 ML IVPB SCH (09:00)
[2018-11-15 10:01] LABS: Activated Partial Thrombo Time 32.3 seconds (26.0-36.3); INR 0.93 (0.77-1.02)
[2018-11-15] MEDS: cefTRIAXone(*) 1 GM in NS 0.9% 50 ML* 50 ML IVPB SCH (11:05)
[2018-11-15 11:41] LABS: ABS Basophils 0 10^3/ul (0-0.2); ABS Eosinophils 0 10^3/ul (0-0.6); ABS Lymphocytes 0.6 10^3/ul (1.0-4.8); ABS Monocytes 0.8 10^3/ul (0-0.8); ABS Neutrophils 11.5 10^3/ul (1.5-7.7); ABS Nucleated RBC 0 10^3/ul; Eosinophil % 0 %; Hematocrit 37 % (42-52); Hemoglobin 12.1 g/dl (14.0-18.0); Lymphocyte % 4.5 %; Mean Corpuscular HGB Conc 32 g/dl (31-36); Mean Corpuscular Hemoglobin 30 pg (27-31); Mean Corpuscular Volume 93 fL (80-94); Mean Platelet Volume 8.2 fL (7.4-10.4); Nucleated Red Blood Cells % 0; Platelet Count 159 10^3/ul (150-450); Red Blood Count 4.02 10^6/ul (4.00-5.40); Red Cell Distribution Width 14 % (10.5-15); White Blood Count 12.9 10^3/ul (3.5-10.8)
[2018-11-15 11:56] LABS: Activated Partial Thrombo Time 32.9 seconds (26.0-36.3); INR 0.89 (0.77-1.02)
[2018-11-15 12:19] LABS: ALT 115 U/L (7-52); AST 89 U/L (13-39); Albumin/Globulin Ratio 1.2 (1-3); Alkaline Phosphatase 50 U/L (34-104); Amylase 32 U/L (29-103); BUN/Creatinine Ratio 16.5 (8-20); Blood Urea Nitrogen 27 mg/dL (6-24); CO2 Carbon Dioxide 25 mmol/L (22-32); Calcium 8.6 mg/dL (8.6-10.3); EGFR African American 53.2 (>60); Globulin 2.5 g/dL (2-4); Glucose 186 mg/dL (70-100); Magnesium 2.4 mg/dL (1.9-2.7); Phosphorus 2.4 mg/dL (2.5-5.0); Potassium 4.6 mmol/L (3.5-5.0); Total Protein 5.5 g/dL (6.4-8.9)
[2018-11-15 12:44] LABS: Anion Gap 4 mmol/L (2-11); Chloride 117 mmol/L (101-111); Sodium 146 mmol/L (135-145)
[2018-11-15] MEDS ORDERED: Metoprolol Tartrate IV* 1 MG/ML 5 ML VIAL ONE (15:56)
[2018-11-15] MEDS ORDERED: Metoprolol Tartrate IV* 1 MG/ML 5 ML VIAL IV PRN (16:02)
[2018-11-15] MEDS: niCARdipine DRIP 0.1 MG/ML @ ___ MG/HR(Edit Rate) IVPREMIX IV SCH ×2 (17:11→21:01)
[2018-11-15 17:53] LABS: ALT 114 U/L (7-52); AST 81 U/L (13-39); Albumin 3.2 g/dL (3.2-5.2); Albumin/Globulin Ratio 1.2 (1-3); Alkaline Phosphatase 54 U/L (34-104); Amylase 31 U/L (29-103); BUN/Creatinine Ratio 17.5 (8-20); Blood Urea Nitrogen 27 mg/dL (6-24); CO2 Carbon Dioxide 25 mmol/L (22-32); EGFR African American 57.2 (>60); EGFR Non-African American 47.3 (>60); Globulin 2.6 g/dL (2-4); Glucose 173 mg/dL (70-100); Magnesium 2.3 mg/dL (1.9-2.7); Phosphorus 2.2 mg/dL (2.5-5.0); Potassium 4.1 mmol/L (3.5-5.0); Total Protein 5.8 g/dL (6.4-8.9)
[2018-11-15] MEDS: LR IV SCH ×2 (17:53)
[2018-11-15 17:58] LABS: Anion Gap 5 mmol/L (2-11); Chloride 117 mmol/L (101-111); Sodium 147 mmol/L (135-145)
[2018-11-15 20:13] LABS: Urine Appearance Turbid; Urine Bacteria 2+ (Absent); Urine Bilirubin Negative (Negative); Urine Blood 2+ (Negative); Urine Color Amber; Urine Glucose 3+(>=500 mg/dL) (Negative); Urine Granular Casts Present (Absent); Urine Ketones Negative (Negative); Urine Nitrite Negative (Negative); Urine Protein 2+(100 mg/dL) (Negative); Urine Red Blood Cell 3+(>10/hpf) (Absent); Urine Specific Gravity 1.023 (1.010-1.030); Urine Urobilinogen Negative (Negative); Urine White Blood Cell 1+(6-10/hpf) (Absent)
[2018-11-16 00:23] LABS: ABS Basophils 0 10^3/ul (0-0.2); ABS Eosinophils 0 10^3/ul (0-0.6); ABS Lymphocytes 0.8 10^3/ul (1.0-4.8); ABS Neutrophils 10.7 10^3/ul (1.5-7.7); ABS Nucleated RBC 0 10^3/ul; Eosinophil % 0 %; Hematocrit 34 % (42-52); Hemoglobin 11.2 g/dl (14.0-18.0); Mean Corpuscular HGB Conc 33 g/dl (31-36); Mean Corpuscular Hemoglobin 31 pg (27-31); Mean Corpuscular Volume 93 fL (80-94); Mean Platelet Volume 8.3 fL (7.4-10.4); Nucleated Red Blood Cells % 0; Platelet Count 159 10^3/ul (150-450); Red Blood Count 3.64 10^6/ul (4.00-5.40); Red Cell Distribution Width 14 % (10.5-15); White Blood Count 12.5 10^3/ul (3.5-10.8)
[2018-11-16 00:30] LABS: Activated Partial Thrombo Time 31.8 seconds (26.0-36.3); INR 0.92 (0.77-1.02)
[2018-11-16] MEDS: LR IV SCH ×2 (00:35→04:34)
[2018-11-16 00:36] LABS: Urine Appearance Turbid; Urine Bacteria 1+ (Absent); Urine Bilirubin Negative (Negative); Urine Blood 2+ (Negative); Urine Color Yellow; Urine Glucose 2+(150 mg/dL) (Negative); Urine Granular Casts Present (Absent); Urine Ketones Negative (Negative); Urine Nitrite Negative (Negative); Urine Protein 3+(>=500 mg/dL) (Negative); Urine Red Blood Cell 3+(>10/hpf) (Absent); Urine Specific Gravity 1.029 (1.010-1.030); Urine Urobilinogen Negative (Negative); Urine White Blood Cell Trace(0-5/hpf) (Absent)
[2018-11-16 00:40] LABS: Albumin 2.9 g/dL (3.2-5.2); Albumin/Globulin Ratio 1.2 (1-3); BUN/Creatinine Ratio 17.4 (8-20); Calcium 8.6 mg/dL (8.6-10.3); EGFR African American 54.4 (>60); EGFR Non-African American 44.9 (>60); Globulin 2.4 g/dL (2-4); Indirect Bilirubin 0.2 mg/dL (0.3-1.0); Magnesium 2.3 mg/dL (1.9-2.7); Phosphorus 2.3 mg/dL (2.5-5.0); Potassium 4.2 mmol/L (3.5-5.0); Total Bilirubin 0.3 mg/dL (0.2-1.0); Total Protein 5.3 g/dL (6.4-8.9)
[2018-11-16] MEDS ORDERED: Furosemide IV* 10 MG/ML VIAL (40 MG) IV ONE (00:45)
[2018-11-16] MEDS ORDERED: LACTATED RINGERS IV ONE (00:45)
[2018-11-16] MEDS: Chlorhexidine MOUTHWASH 0.12%* 15 ML UDC TOPICAL SCH ×2 (00:51→05:21)
[2018-11-16] MEDS: Albuterol 2.5 MG/3 ML NEB.SOL* (0.083%) INH SCH ×2 (01:00→04:29)
[2018-11-16] MEDS: Levothyroxine INJ* 100 MCG in D5W 250 ML BAG* 250 ML IV SCH ×2 (03:50→07:27)
[2018-11-16] MEDS: Vancomycin(*) 1,000 MG in NS 0.9% 250 ML* 250 ML IVPB SCH (05:21)
[2018-11-16 06:04] LABS: Albumin 2.8 g/dL (3.2-5.2); Albumin/Globulin Ratio 1.3 (1-3); Calcium 8.5 mg/dL (8.6-10.3); EGFR African American 52.9 (>60); EGFR Non-African American 43.7 (>60); Globulin 2.2 g/dL (2-4); Indirect Bilirubin 0.2 mg/dL (0.3-1.0); Magnesium 2.1 mg/dL (1.9-2.7); Phosphorus 1.5 mg/dL (2.5-5.0); Potassium 3.8 mmol/L (3.5-5.0); Total Bilirubin 0.3 mg/dL (0.2-1.0)
[2018-11-16 08:35] VITALS: BP 130/72
[2018-11-16] MEDS ORDERED: Rocuronium* 10 MG/ML VIAL ONE ×2 (08:58→11:18)
[2018-11-16] MEDS ORDERED: Mannitol 25% (12.5 GM) 50 ML* 12.5 GM/50 ML VIAL ONE (09:04)
[2018-11-16] MEDS ORDERED: Furosemide IV* 10 MG/ML 10 ML VIAL (100 MG) ONE (09:04)
[2018-11-16] MEDS ORDERED: Vancomycin Trough Check NOTE FOLLOW UP ONE (13:00)
== END 2018-11-14 12:59 | disposition expired | DRG 152 ==
LOC: ED 09:00 → ICU 09:18
PROVIDERS: ADMIT Internal Medicine Critical Care Medicine; ATTEND Internal Medicine Critical Care Medicine
PROC: 5A09357 Assistance with Respiratory Ventilation, Less than 24 Consecutive Hours, Continuous Positive Airway Pressure (ICD-10-PCS; 2018-11-11)
PROC: 3E033XZ Introduction of Vasopressor into Peripheral Vein, Percutaneous Approach (ICD-10-PCS; principal; 2018-11-13)
PROC: 06HM33Z Insertion of Infusion Device into Right Femoral Vein, Percutaneous Approach (ICD-10-PCS; 2018-11-13)
PROC: 5A12012 Performance of Cardiac Output, Single, Manual (ICD-10-PCS; 2018-11-13)
PROC: 5A1945Z Respiratory Ventilation, 24-96 Consecutive Hours (ICD-10-PCS; 2018-11-13)
PROC: 0BH17EZ Insertion of Endotracheal Airway into Trachea, Via Natural or Artificial Opening (ICD-10-PCS; 2018-11-13)
DX: J05.11 Acute epiglottitis with obstruction (principal); R40.20 Unspecified coma; G93.1 Anoxic brain damage, not elsewhere classified; I46.9 Cardiac arrest, cause unspecified; I10 Essential (primary) hypertension; F17.200 Nicotine dependence, unspecified, uncomplicated; Z93.0 Tracheostomy status; Z88.0 Allergy status to penicillin; I95.9 Hypotension, unspecified; Z72.89 Other problems related to lifestyle
CPT/HCPCS: 36415; 36600; 70360; 71045; 74176; 80053; 80202; 81003; 81015; 82150; 82248; 82270; 82550; 82553; 82803; 82947; 82977; 83036; 83605; 83615; 83690; 83735; 83935; 84100; 84439; 84484; 85025; 85027; 85610; 85730; 86140; 86850; 86900; 86901; 86905; 87040; 87086; 87641; 92950; 94002; 94003; 99284; A9270-GY; J0171; J0696; J1644; J1940; J2150; J2597; J2930; J3370; J3490

== ENCOUNTER 2018-11-14 13:00 | Day surgery (SDC) | payer OTHER | END 2018-11-16 09:04 | disposition E | LOC: OR 13:00 | PROVIDERS: ATTEND Family Medicine | DX: Z52.9 Donor of unspecified organ or tissue (principal) | CPT/HCPCS: 36415; 36600; 74176; 80053; 80202; 81003; 81015; 82150; 82248; 82550; 82553; 82803; 82977; 83036; 83605; 83615; 83690; 83735; 83935; 84100; 84439; 84484; 85025; 85027; 85610; 85730; 86140; 86850; 86900; 86901; 86905; 87040; 87086; 94003; A9270-GY; J0696; J1644; J1940; J2150; J2597; J2930; J3370; J3490 ==